=== PATIENT | male | born 1960 | race Caucasian/White ===

== ENCOUNTER 2024-03-18 00:17 | Emergency (ER) | payer MEDICARE, SELFPAY ==
[2024-03-18] VITALS (13 sets, daily range): BP systolic 147–181; BP diastolic 74–103; PULSE 68–85; RESP 14–21; TEMP 37.3; O2SAT 92–98
--- NOTE | 2024-03-18 00:43 | W.ED.GENAD ---
Discharge Plan Disposition Patient Disposition: Home Condition: Good Discharge Details Clinical Impression: Edema, Hyponatremia ED Provider: Sloane Santillan Home Meds and New Rx's Prescriptions: New furosemide [Lasix] 20 mg tablet 20 mg PO DAILY Qty: 7 0RF Discharge Instructions Instructions: Swelling, Hyponatremia Additional Instructions: Call your primary care doctor on Wednesday and see if you can move up your appointment from Wednesday to earlier in the week. Take furosemide once a day until you are able to see your primary care doctor. This medication will make you urinate a lot. At your primary care visit discuss your blood pressure, sodium level, and foot wounds. Your blood sodium is slightly low here in the emergency department- this new medication can sometimes make this worse. It is very important that you return to the emergency department for nausea, vomiting, headache, or confusion as these can be signs of dangerously low blood sodium. Return to the emergency department for other new or worsening symptoms. HPI General Mode of arrival: ambulatory. Date/Time Provider Initiated Documentation: 03/18/24 00:19. Limitations to Documentation: no limitations. Information obtained by: patient and family. HPI Narrative: 64yo M with hx hypertension and asthma, denies other medical problems but has not seen a PCP in 3 years, not currently on any medication but has been on antihypertensives in the past, presenting for bilateral leg swelling. Swelling has been slowly worsening over the past three weeks. Presents to today as he is on vacation with his daughters and they brought him to the ED after seeing his legs. No chest pain or shortness of breath. No numbness, tingling, or weakness in his legs. No recent illnesses. Did have a tic bite between his 4th and 5th toes on his right foot about 5 days ago, since then has had a wound to that area which is not healing. He is otherwise in his usual state of health with no fevers, chills, rash, nausea, vomting, abdominal pain, headache, change in urine output, or other concerns. Related Data Home Medications ?Medication ?Instructions ?Recorded ?Confirmed furosemide 20 mg tablet (Lasix) 20 mg PO DAILY #7 tabs 03/18/24 Previous Rx's ?Medication ?Instructions ?Recorded furosemide 20 mg tablet (Lasix) 20 mg PO DAILY #7 tabs 03/18/24 Allergies Allergy/AdvReac Type Severity Reaction Status Date / Time No Known Allergies Allergy Unverified 03/18/24 00:28 General Stated Complaint: GenMedical CHRISSIE: 3 Review of Systems Narrative: see HPI Exam Narrative Exam Narrative: General: Alert, well appearing, obese, in no acute distress. Head: Normocephalic, atraumatic Neck: Trachea midline, ?Neck supple. ENT: ?MMM.? Cardiac: ?RRR, no murmurs appreciated Resp: No respiratory distress. CTAB. Abd: ?Soft, non-distended, nontender Extremities: LE: ?3+ pitting edema symmetric bilateral lower extremities. Some serous weeping. Palpable DP pulses symmetric bilaterally. 5 sec capillary bilaterally. Sensation to light touch intact and symmetric multiple dermatomes BLE. 5+ strength BLE. Dorsum of left foot with ~2cm area of mild skin breakdown. Dorsum of left foot with 3cm area of moderate skin breakdown extending from junction of 4th & 5th digits. No surrounding erythema or discharge. Neurologic: GCS 15. ? Moves all extremities freely against gravity Course Vital Signs Vital signs: Vital Signs Temperature 37.3 C 03/18/24 00:22 Pulse 68 03/18/24 00:22 Respiratory Rate 20 03/18/24 00:22 Blood Pressure 181/102 H 03/18/24 00:22 Pulse Oximetry 98 03/18/24 00:22 Temperature 37.3 C 03/18/24 00:22 Temperature Source Oral 03/18/24 00:22 Pulse 68 03/18/24 00:22 Respiratory Rate 20 03/18/24 00:22 Respiratory Effort Normal 03/18/24 00:36 Blood Pressure 181/102 H 03/18/24 00:22 Blood Pressure Position Sitting 03/18/24 00:22 Pulse Oximetry 98 03/18/24 00:22 Pain Level 3 03/18/24 00:22 Medical Decision Making 64yo M with hx hypertension and asthma, denies other medical problems but has not seen a PCP in 3 years, not currently on any medication but has been on antihypertensives in the past, presenting for bilateral leg swelling. Swelling has been slowly worsening over the past three weeks. Presents to today as he is on vacation with his daughters. Hypertensive on arrival, vital signs otherwise reassuring. No respiratory distress or hypoxia; lungs are CTAB. On exam he does have symmetric bilateral lower extremity pitting edema with some weeping. Also wounds to dorsum of both feet. No indication of infection or cellulitits, not suggestive of DVT. Palpable DP pulses bilaterally however slightly delayed capillary refilll in toes (brisk in fingers) suggestive of PAD. Sensation intact, no other indications of neurovascular compromise. Patient states he does have a history of fluid retention in the past but never this bad, does not think he has been on a water pill before. History and exam not suggestive of acute coronary syndromes, respiratory failure, sepsis, cellulitis, ischemic limb, or acute heart failure requiring hospital admission. Would not get CXR, CT, US or give abx. Has PCP appointment scheduled for 7 days from now. May benefit from diuresis for comfort given degree of edema; will send BMP to evaluate electrolytes. BMP as below, potassium normal however mild hyponatremia with Na 0f 132. Discussed risks/benefits with patient and family; will proceed with low-dose lasix. Symptoms of worsening/symptomatic hyponatremia were reviewed with patient and family at bedside. He was advised to attempt to move his PCP appointment up to earlier next week. Discharged home; discharge instructions and strict return precautions were reviewed with patient who verbalized understanding. All questions were answered and he is in full agreement with the plan. Lab Data Lab results reviewed: Yes I reviewed the patient's lab results. Labs: Laboratory Tests Range/Units 03/18/24 00:51 Sodium (136-145) mmol/L 132 L Potassium (3.5-5.1) mmol/L 3.9 Chloride (98-107) mmol/L 95 L Carbon Dioxide (21.0-32.0) mmol/L 26.1 Anion Gap (3-11) mmol/L 10.9 BUN (7-18) mg/dL 6 L Creatinine (0.70-1.30) mg/dL 0.7 Est GFR (CKD-EPI 2020) (mL/min/1.73m2) 101.62 Glucose (74-106) mg/dL 103 Calcium (8.5-10.1) mg/dL 8.6 Quality:[facility] Health Related Social Needs: No Data to Display PFSH All Active Problems (Updated 03/18/24 @ 01:12 by Sloane Santillan MD) Hyponatremia (Acute) Edema (Acute) Social History Smoking risk assessment performed?: No
[2024-03-18 01:06] LABS: Anion Gap 10.9 mmol/L (3-11); BUN 6 mg/dL (7-18); CO2 26.1 mmol/L (21.0-32.0); CREATININE 0.7 mg/dL (0.70-1.30); Calcium 8.6 mg/dL (8.5-10.1); Chloride 95 mmol/L (98-107); Estimated GFR 101.62 (mL/min/1.73m2); Glucose 103 mg/dL (74-106); Potassium 3.9 mmol/L (3.5-5.1); Sodium 132 mmol/L (136-145)
[2024-03-18] MEDS: Furosemide 20 MG TAB PO (01:21)
== END 2024-03-18 01:24 | disposition home or self-care (01) ==
LOC: ER 01:33
PROVIDERS: Emergency Provider Student in an Organized Health Care Education/Training Program
DX: R22.43 Localized swelling, mass and lump, lower limb, bilateral (principal); I10 Essential (primary) hypertension; E87.1 Hypo-osmolality and hyponatremia; S90.861A Insect bite (nonvenomous), right foot, initial encounter; W57.XXXA Bitten or stung by nonvenomous insect and other nonvenomous arthropods, initial encounter
CPT/HCPCS: 80048; 99283